=== PATIENT | female | born 1980 | race Caucasian/White ===

== ENCOUNTER 2017-02-18 03:15 | Inpatient (IN) | payer OTHER ==
[2017-02-13 15:16] VITALS: BMI 42.0
--- NOTE | 2017-02-13 15:37 | PAT Medication Instructions ---
Service Date Feb 13, 2017. Current Home Medication List Multiple Vitamin (Multi Vitamin Daily), 1 TAB PO QAM Medication Instructions For Your Scheduled Surgery - Hold the following medications the morning of surgery: Multiple Vitamin (Multi Vitamin Daily), 1 TAB PO QAM Nothing to eat or drink after midnight If you have any questions please call us at [phone] or [phone] or [phone]
[2017-02-13 15:56] LABS: BASO % 0.1 %; BASO ABS # 0.01 K/uL (0-0.2); COMPLETE YES; EOS % 0.4 %; HEMATOCRIT 33.1 % (37-47); IG% 0.4 %; LYMPH % 28.3 %; LYMPH ABS # 2.31 K/uL (1.2-3.4); MEAN CELL VOLUME 88.5 fL (80-100); MEAN CORPUSCULAR HEMOGLOBIN 29.7 pg (25-34); MEAN CORPUSCULAR HGB CONC 33.5 g/dl (32-36); MEAN PLATELET VOLUME 11.5 fL (7.4-10.4); MONO % 5.6 %; NEUT % 65.2 %; PLATELET COUNT 180 K/uL (130-400); RED BLOOD COUNT 3.74 M/uL (4.2-5.4); WHITE BLOOD COUNT 8.17 K/uL (4.8-10.8)
[2017-02-18] VITALS (15 sets, daily range): BP systolic 99–117; BP diastolic 59–72; PULSE 61–73; TEMP 36.4–36.8; O2SAT 98–100; Ht 165.1 cm; Wt 115.0 kg
[~2017-02-18] VITALS: Ht 165.1 cm; Wt 115.0 kg
[~2017-02-18 03:15] MED LIST: MULT-884 PO
[2017-02-18] MEDS ORDERED: CITRIC ACID/SODIUM CITRATE 15 ML UDC PO STA (06:36)
[2017-02-18] MEDS ORDERED: CEFAZOLIN IV 3,000 MG in DEXTROSE 5% 50ML IV STA (06:37)
[2017-02-18 06:44] LABS: BASO % 0.3 %; BASO ABS # 0.02 K/uL (0-0.2); COMPLETE YES; EOS % 1.3 %; IG% 0.3 %; MEAN CELL VOLUME 88.2 fL (80-100); MEAN CORPUSCULAR HEMOGLOBIN 29.7 pg (25-34); MEAN CORPUSCULAR HGB CONC 33.6 g/dl (32-36); MEAN PLATELET VOLUME 11.5 fL (7.4-10.4); MONO % 7.7 %; NEUT % 63.4 %; PLATELET COUNT 168 K/uL (130-400); RED BLOOD COUNT 3.74 M/uL (4.2-5.4); WHITE BLOOD COUNT 7.04 K/uL (4.8-10.8)
--- NOTE | 2017-02-18 06:53 | History & Physical Bridge Note ---
H&P Re-Evaluation Bridge Note: I have examined the patient, reviewed the History & Physical and in the interval since the performance of the History & Physical I have noted the following changes of clinical significance: No changes noted
[2017-02-18] MEDS: LACTATED RINGER'S 1000ML 1,000 ML IV SCH ×2 (06:59→07:25)
[2017-02-18] MEDS ORDERED: MoRPHine SULFATE PF 1 MG/ML 10 ML AMP/VIAL ONE (07:07)
[2017-02-18] MEDS ORDERED: DC INTRASPINAL MORPHINE SCH (07:35)
[2017-02-18] MEDS ORDERED: PROPOFOL IV EMULSION 10 MG/ML 20 ML VIAL IV ONE (07:55)
[2017-02-18] MEDS ORDERED: ONDANSETRON INJ 2 MG/ML 2 ML VIAL ONE (07:55)
[2017-02-18] MEDS ORDERED: METOCLOPRAMIDE HCL INJ 5 MG/ML 2 ML VIAL ONE (07:55)
[2017-02-18] MEDS ORDERED: OXYTOCIN INJ 10 UNITS/ML VIAL ONE ×3 (07:55→08:16)
[2017-02-18] MEDS ORDERED: EpHEDrine SULFATE 50MG/5ML SYR ONE (07:56)
[2017-02-18] MEDS ORDERED: PHENYLEPHRINE 100MCG/ML 5ML SYR ONE (07:56)
[2017-02-18] MEDS ORDERED: LACTATED RINGER'S 1000ML 1,000 ML IV SCH (08:31)
--- NOTE | 2017-02-18 08:37 | [facility] Post Operative Brief Note ---
Immediate Operative Summary Operative Date Feb 18, 2017. Pre-Operative Diagnosis Term intrauterine at 40 weeks, 2 days. Desires elective repeat section. Post-Operative Diagnosis Same with delivery of viable male at 0759. Procedure(s) Performed Repeat low transverse section. Surgeon Dr. Saunders Geodetic Surveyor Technologist Surgeon(s) Dr. Shah Estimated Blood Loss 700 Findings Patient delivered a viable male in the vertex position at 0759 on via repeat LTCS. APGARs were 8 at 1 minute and 9 at minutes. Please see pediatricians notes for further baby assessment. Cord blood obtained and an intact placenta was delivered manually and sent to pathology. Grossly normal uterus and bilateral tubes and ovaries noted. Patient tolerated the surgery well and was sent to recovery with stable vital signs. Fluids (cc crystalloids) 3200 Specimens A. Placenta - exam B. Cord blood Drains Bowen to gravity Anesthesia Spinal Complication(s) None Disposition L&D
[2017-02-18] MEDS ORDERED: SODIUM CHLORIDE 0.9% 1000ML 1,000 ML IV PRN (08:41)
[2017-02-18] MEDS ORDERED: NALOXONE HCL INJ 1 MG in SODIUM CHLORIDE 0.9% 1000ML 1,000 ML IV PRN ×4 (08:41)
[2017-02-18] MEDS ORDERED: LACTATED RINGER'S 1000ML 500 ML IV PRN (08:41)
[2017-02-18] MEDS ORDERED: NALOXONE HCL INJ 0.08 MG in SYRINGE 1.8 ML IV PRN (08:41)
[2017-02-18] MEDS ORDERED: SUPERCREAM 0.870 % 15GM JAR EXT PRN (08:45)
[2017-02-18] MEDS ORDERED: MoRPHine SULFATE PF 1 MG/ML 10 ML AMP/VIAL EPI PRN (08:45)
[2017-02-18] MEDS ORDERED: BENZOCAINE 20% AER SPR 82.5 GM CAN EXT PRN (08:45)
[2017-02-18] MEDS ORDERED: PROMETHAZINE HCL INJ 12.5 MG in SODIUM CHLORIDE 0.9% 50ML 50 ML IV PRN (08:45)
[2017-02-18] MEDS ORDERED: MAGNESIUM HYDROXIDE SUSP 30 ML UDC PO PRN (08:45)
[2017-02-18] MEDS ORDERED: LANOLIN OINT EXT PRN ×2 (08:45)
[2017-02-18] MEDS ORDERED: PHENYLEPHRINE 100MCG/ML 5ML SYR IV PRN (08:45)
[2017-02-18] MEDS ORDERED: PROMETHAZINE HCL INJ 25 MG in SODIUM CHLORIDE 0.9% 50ML 50 ML IV PRN (08:45)
[2017-02-18] MEDS ORDERED: MEPERIDINE HCL 25 MG/ML CARP IV PRN ×2 (08:45)
[2017-02-18] MEDS ORDERED: DiphenhydrAMINE HCL 50 MG/ML VIAL IV PRN (08:45)
[2017-02-18] MEDS ORDERED: DIPHTHERIA/TETANUS/PERTUSSIS 0.5 ML SYR/VIAL IM. ONE (08:45)
[2017-02-18] MEDS ORDERED: KETOROLAC TROMETHAMINE 30 MG/ML VIAL IV. PRN (08:45)
[2017-02-18] MEDS ORDERED: ONDANSETRON INJ 2 MG/ML 2 ML VIAL IV PRN ×2 (08:45)
[2017-02-18] MEDS ORDERED: NALBUPHINE HCL INJ 10 MG/ML AMP IV PRN (08:45)
[2017-02-18] MEDS ORDERED: SENNA 8.6 MG TAB PO PRN (08:45)
[2017-02-18] MEDS ORDERED: EpHEDrine SULFATE INJ 50 MG/ML AMP IV PRN ×2 (08:45)
[2017-02-18] MEDS ORDERED: NALOXONE HCL 0.4 MG/1 ML VIAL/CARP IV PRN (08:45)
[2017-02-18] MEDS ORDERED: ATROPINE SULFATE 0.1 MG/ML 5ML SYR IV PRN (08:45)
[2017-02-18] MEDS ORDERED: NO NARCOTICS OR SEDATIVES SCH (08:45)
[2017-02-18] MEDS ORDERED: HYDROCORTISONE ACETATE 25 MG SUPP PR PRN (08:45)
[2017-02-18] MEDS: OXYTOCIN INJ 30 UNITS in LACTATED RINGER'S 1000ML 1,000 ML IV SCH ×2 (08:59→16:50)
[2017-02-18] MEDS: SIMETHICONE 80 MG CHEW PO SCH ×4 (09:00→19:54)
--- NOTE | 2017-02-18 09:24 | OPERATIVE REPORT ---
DATE OF OPERATION: 02/18/2017 PREOPERATIVE DIAGNOSES: 1. Term intrauterine at 40 weeks and 2 days gestation. 2. History of previous section, requesting a repeat section. POSTOPERATIVE DIAGNOSES: Same. OPERATIVE PROCEDURE: Repeat low transverse section. SURGEON: Dr. Saunders. CHECKOUT OPERATOR: Dr. Shah. ANESTHESIA: Spinal. ESTIMATED BLOOD LOSS: 700 mL. IV FLUIDS: 3200 mL crystalloids. URINE OUTPUT: 300 mL clear yellow urine. SPECIMENS: Placenta to pathology and cord blood. DRAINS: Bowen to gravity. COMPLICATIONS: None. DISPOSITION: Labor delivery. OPERATIVE FINDINGS: The patient delivered a viable male in the vertex position at 7:59 a.m. on 02/18/2017 via repeat low transverse section. Apgars were 8 at 1 minute and 9 at 5 minutes, weight is pending. Please see concession cashier's notes for further baby assessment. Cord blood was then obtained and intact placenta was delivered manually and sent to pathology at 8:01 a.m. Grossly normal uterus and bilateral tubes and ovaries were noted. The patient tolerated the surgery well and was sent to recovery with stable vital signs. OPERATIVE PROCEDURE IN DETAIL: The patient was taken to the operating room where spinal anesthesia was administered. The patient was then immediately placed in dorsal supine position with a left lateral tilt and was prepped and draped in a manner appropriate for the procedure. Once anesthesia was found to be adequate, a Pfannenstiel skin incision was made over the previous scar and was carried down through to a layer of the rectus fascia. The fascia was nicked in the midline and extended bilaterally with curved Hill scissors. The superior aspect of the fascial incision was grasped with Penelope clamps, elevated, and the rectus muscles were dissected off with the use of the curved Hill scissors and electrocautery. Likewise, the inferior aspect of the fascial incision was grasped with Penelope clamps, elevated, and the rectus muscles were dissected off with the use of the curved Hill scissors and electrocautery. The rectus muscles were then in midline. The peritoneum was then grasped with hemostats x2 and entered with Metzenbaum scissors. The peritoneal incision was then extended cephalocaudally with gentle traction. The bladder blade was then placed within the abdomen. The vesicouterine peritoneum was identified and a bladder flap was created with Metzenbaum scissors and digital traction. The bladder flap was reincorporated beneath the Paramjit blade. A transverse incision was then made on the uterus and extended bilaterally with digital traction. The membranes were then ruptured noting clear amniotic fluid. The head was then identified and delivered through the incision along with the rest of the body. Baby was bulb suctioned at delivery. Cord was clamped x2 and cut. The baby was then immediately handed to an awaiting concession cashier for further evaluation and management. Please see their notes for further baby assessment. Cord blood was then obtained and intact placenta with a 3-vessel cord was delivered manually through the incision and sent to pathology. The uterus was then exteriorized and wrapped in a moist laparotomy sponge. The uterus was then cleared of any trailing membranes and debris with laparotomy sponge. The uterine incision was then grasped with ringed forceps at 4 quadrants and was closed with 0 Vicryl suture in continuous locking fashion. A second 0 Vicryl suture was used in imbricating fashion to ensure hemostasis. Any residual bleeding was suture-ligated with 0 Vicryl suture in a [id number] interrupted fashion. Excellent hemostasis was noted at the uterine incision. The bladder flap was reapproximated to the lower uterine segment with 3-0 Vicryl suture in continuous running fashion. The posterior cul-de-sac was then irrigated with warm saline solution. The uterus was then placed back within its normal anatomic position within the abdomen. The anterior cul-de-sac was then irrigated with warm saline solution. The uterine incision was noted to be hemostatic. All instruments were then removed from the abdomen. The rectus fascia was then reapproximated with 0 Vicryl suture in continuous running fashion. Subcutaneous tissue was reapproximated with 2-0 Vicryl suture in continuous running fashion. Skin was then closed with iam. Excellent hemostasis was noted through all tissue layers. Both patient and baby tolerated the surgery well and was sent to recovery with stable vital signs. I attest to the content of the Intraoperative Record and any orders documented therein. Any exception s are noted below.
--- NOTE | 2017-02-18 11:52 | Anesthesiology Progress Note ---
Anesthesia Post Op Note Date & Time Feb 18, 2017 at 11:52 Vital Signs Vital Signs Past 12 Hours Date Time Temp Pulse Resp B/P (MAP) Pulse Ox O2 Delivery O2 Flow Rate FiO2 02/18/17 10:45 16 100 02/18/17 10:45 100 Room Air 02/18/17 10:45 36.4 72 16 105/59 (74) 100 Room Air Notes Mental Status: alert / awake / arousable, participated in evaluation Pt Amnestic to Procedure: Yes Nausea / Vomiting: adequately controlled Pain: adequately controlled Airway Patency, RR, SpO2: stable & adequate BP & HR: stable & adequate Hydration State: stable & adequate Neuraxial Anesthesia: was administered, sensory block is resolving Anesthetic Complications: no major complications apparent
[2017-02-18] MEDS: KETOROLAC TROMETHAMINE 30 MG/ML VIAL IV. PRN ×2 (17:00→23:53)
[2017-02-18] MEDS: DOCUSATE SODIUM 100 MG CAP PO SCH (20:00)
[2017-02-19] MEDS ORDERED: KETOROLAC TROMETHAMINE 30 MG/ML VIAL IV. PRN
[2017-02-19] MEDS ORDERED: DiphenhydrAMINE HCL 50 MG/ML VIAL IV PRN
[2017-02-19] MEDS ORDERED: ONDANSETRON INJ 2 MG/ML 2 ML VIAL IV PRN
[2017-02-19] MEDS ORDERED: OXYCODONE/ACETAMINOPHEN 5-325 TAB PO PRN
[2017-02-19 04:10] VITALS: BP 98/65; PULSE 71; TEMP 36.6; O2SAT 98
[2017-02-19] MEDS: IBUPROFEN 600 MG TAB PO PRN ×5 (04:18→22:43)
[2017-02-19] MEDS: OXYCODONE/ACETAMINOPHEN 5-325 TAB PO PRN ×5 (04:19→22:43)
[2017-02-19 07:06] LABS: BASO % 0.3 %; BASO ABS # 0.02 K/uL (0-0.2); COMPLETE YES; EOS % 1.1 %; HEMATOCRIT 32.9 % (37-47); IG% 0.3 %; LYMPH % 20.4 %; LYMPH ABS # 1.63 K/uL (1.2-3.4); MEAN CELL VOLUME 88.7 fL (80-100); MEAN CORPUSCULAR HEMOGLOBIN 29.1 pg (25-34); MEAN CORPUSCULAR HGB CONC 32.8 g/dl (32-36); MEAN PLATELET VOLUME 11.2 fL (7.4-10.4); MONO % 7.6 %; NEUT % 70.3 %; PLATELET COUNT 167 K/uL (130-400); RED BLOOD COUNT 3.71 M/uL (4.2-5.4)
[2017-02-19 09:25] VITALS: BP 102/66; PULSE 60; TEMP 36.7; O2SAT 98
[2017-02-19] MEDS: PRENATAL VITAMIN TAB PO SCH (09:26)
[2017-02-19] MEDS: FERROUS SULFATE 325 MG TAB PO SCH (09:26)
[2017-02-19] MEDS: SIMETHICONE 80 MG CHEW PO SCH ×4 (09:27→20:00)
[2017-02-19] MEDS: DOCUSATE SODIUM 100 MG CAP PO SCH ×2 (09:28→19:54)
--- NOTE | 2017-02-19 11:43 | Surgery Progress Note ---
Surgery Progress Note Date of Service Feb 19, 2017. Subjective Post OP Day: 1 + feeling well, + ambulating, + flatus, + pain controlled, + diet (Tolerating PO ), No complaints, No chest pain, No SOB, No bowel movement, No using C[employer] P[employer]LED MEAT, No nausea, No vomiting Objective Vital Signs: Date Time Temp Pulse Resp B/P (MAP) Pulse Ox O2 Delivery O2 Flow Rate FiO2 02/19/17 09:25 36.7 60 18 102/66 (78) 98 Room Air 02/19/17 09:25 98 Room Air 02/19/17 04:10 36.6 71 16 98/65 (76) 98 Room Air 02/18/17 23:45 16 98 02/18/17 23:45 Room Air 02/18/17 23:45 36.8 71 16 99/66 (77) 98 02/18/17 23:00 18 98 02/18/17 22:00 18 98 02/18/17 21:00 16 98 02/18/17 20:00 18 98 02/18/17 19:30 36.7 61 18 105/69 (81) 98 Room Air 02/18/17 19:00 18 98 02/18/17 18:00 18 100 02/18/17 17:00 16 98 02/18/17 16:00 18 100 02/18/17 15:20 36.6 64 16 117/72 (87) 100 Room Air 02/18/17 15:20 100 Room Air 02/18/17 14:47 18 98 02/18/17 12:45 36.4 73 16 109/65 (80) 100 Room Air 02/18/17 12:45 16 100 02/18/17 12:45 36.4 73 16 109/65 (80) 100 Room Air 02/18/17 11:45 36.6 70 16 113/71 (85) 100 Room Air 02/18/17 11:45 16 100 General Appearance: WD/WN, no apparent distress Head: normocephalic, atraumatic Neck: supple, no adenopathy, thyroid normal, no JVD, no carotid bruits, trachea midline Respiratory/Chest: chest non-tender, lungs clear, normal breath sounds, no respiratory distress, no accessory muscle use Cardiovascular: regular rate, rhythm, no edema, no gallop, no JVD, no murmur Abdomen: normal bowel sounds, non tender, non distended, soft, no organomegaly , no pulsatile mass Incision(s): clean, dry, intact, no erythema, no drainage Extremities: normal range of motion, non-tender, normal inspection, no pedal edema, no calf tenderness, normal capillary refill, pelvis stable Laboratory Results: Results Past 24 Hours Test 02/19/17 06:50 Range/Units White Blood Count 8.00 4.8-10.8 K/uL Red Blood Count 3.71 4.2-5.4 M/uL Hemoglobin 10.8 12.0-16.0 g/dL Hematocrit 32.9 37-47 % Mean Corpuscular Volume 88.7 80-100 fL Mean Corpuscular Hemoglobin 29.1 25-34 pg Mean Corpuscular Hemoglobin Concent 32.8 32-36 g/dl Platelet Count 167 130-400 K/uL Mean Platelet Volume 11.2 7.4-10.4 fL Neutrophils (%) (Auto) 70.3 % Lymphocytes (%) (Auto) 20.4 % Monocytes (%) (Auto) 7.6 % Eosinophils (%) (Auto) 1.1 % Basophils (%) (Auto) 0.3 % Neutrophils # (Auto) 5.63 1.4-6.5 K/uL Lymphocytes # (Auto) 1.63 1.2-3.4 K/uL Monocytes # (Auto) 0.61 0.11-0.59 K/uL Eosinophils # (Auto) 0.09 0-0.5 K/uL Basophils # (Auto) 0.02 0-0.2 K/uL RDW Standard Deviation 42.0 36.4-46.3 fL RDW Coefficient of Variation 13.1 11.5-14.5 % Immature Granulocyte % (Auto) 0.3 % Immature Granulocyte # (Auto) 0.02 0.00-0.02 K/uL Assessment & Plan C/sec day #1 Pt doing well Continue day 1 care
[2017-02-19 11:50] VITALS: BP 101/68; PULSE 65; TEMP 36.7; O2SAT 99
[2017-02-19 16:00] VITALS: BP 116/69; PULSE 62; TEMP 36.5; O2SAT 99
[2017-02-19] MEDS ORDERED: BISACODYL 5 MG TABEC PO ONE (22:00)
[2017-02-19 23:10] VITALS: BP 114/76; PULSE 67; TEMP 36.7
[2017-02-20] MEDS: IBUPROFEN 600 MG TAB PO PRN ×5 (04:40→20:19)
[2017-02-20] MEDS: OXYCODONE/ACETAMINOPHEN 5-325 TAB PO PRN ×5 (04:42→20:19)
[2017-02-20 06:53] LABS: HEMATOCRIT 33.3 % (37-47)
--- NOTE | 2017-02-20 07:59 | Surgery Progress Note ---
Surgery Progress Note Date of Service Feb 20, 2017. Subjective Post OP Day: 1 + feeling well, + ambulating, + flatus, + pain controlled, + diet Objective Vital Signs: Date Time Temp Pulse Resp B/P (MAP) Pulse Ox O2 Delivery O2 Flow Rate FiO2 02/19/17 23:10 36.7 67 18 114/76 (89) Room Air 02/19/17 23:10 Room Air 02/19/17 16:00 Room Air 02/19/17 16:00 36.5 62 16 116/69 (85) 99 Room Air 02/19/17 11:50 36.7 65 18 101/68 (79) 99 Room Air 02/19/17 09:25 36.7 60 18 102/66 (78) 98 Room Air 02/19/17 09:25 98 Room Air General Appearance: no apparent distress Abdomen: non tender, non distended, soft Incision(s): clean, dry, intact Extremities: non-tender, normal inspection, no pedal edema, no calf tenderness Laboratory Results: Results Past 24 Hours Test 02/20/17 06:40 Range/Units Hemoglobin 11.0 12.0-16.0 g/dL Hematocrit 33.3 37-47 % Assessment & Plan POD#2 tent d/c in AM regular diet
[2017-02-20] MEDS: SIMETHICONE 80 MG CHEW PO SCH ×4 (08:32→20:18)
[2017-02-20] MEDS: PRENATAL VITAMIN TAB PO SCH (08:33)
[2017-02-20] MEDS: FERROUS SULFATE 325 MG TAB PO SCH (08:33)
[2017-02-20] MEDS: DOCUSATE SODIUM 100 MG CAP PO SCH ×2 (08:33→20:18)
[2017-02-20] MEDS ORDERED: BISACODYL 10 MG SUPP PR PRN (08:45)
[2017-02-20 15:45] VITALS: BP 100/69; PULSE 61; TEMP 36.6; O2SAT 99
[2017-02-20 23:55] VITALS: BP 119/81; PULSE 69; TEMP 36.7
[2017-02-21] MEDS: IBUPROFEN 600 MG TAB PO PRN ×3 (01:35→11:56)
[2017-02-21] MEDS: OXYCODONE/ACETAMINOPHEN 5-325 TAB PO PRN ×3 (01:35→11:56)
[2017-02-21] MEDS: SIMETHICONE 80 MG CHEW PO SCH (07:48)
[2017-02-21] MEDS: DOCUSATE SODIUM 100 MG CAP PO SCH (07:48)
[2017-02-21] MEDS: PRENATAL VITAMIN TAB PO SCH (07:48)
[2017-02-21] MEDS: FERROUS SULFATE 325 MG TAB PO SCH (07:48)
[2017-02-21 08:00] VITALS: BP 100/64; PULSE 58; TEMP 36.6
[2017-02-21] MEDS ORDERED: OXYC-57 PO (08:48)
[2017-02-21] MEDS ORDERED: MTR600X PO (08:48)
--- NOTE | 2017-02-21 08:49 | Discharge Instructions ---
Discharge Instructions Date of Service Feb 21, 2017. Admission Reason for Admission: Prior Section -Requesting Repeat Discharge Discharge Diagnosis / Problem: Repeat Csection Discharge Goals Goal(s): Routine recovery after Activity Recommendations Activity Limitations: as noted below ACTIVITY RECOMMENDATIONS: * Gradual return to full activity over the next 2-3 weeks. * No lifting - nothing heavier than baby over the next 2-3 weeks. * Do not engage in vigorous exercise, sexual activity or sports until cleared by your physician. * Do not drive or operate any motorized equipment until cleared by your physician. * You may shower/bathe daily. BREAST CARE: If you are not breast feeding: * Wear a supportive bra 24 hours a day for one to two weeks. * Avoid stimulating your breasts and nipples as much as possible during the first few weeks after delivery. * When taking a shower, have the warm water hit your back, not breasts. * When your breasts feel full, apply ice packs. Usually three to four times a day helps ease the discomfort. * Take a mild pain medication (Tylenol/Motrin) when you are uncomfortable. If breast feeding: * Use breast milk to lubricate nipples. Lansinoh cream may be used for sore nipples. You do not need to remove cream prior to breast feeding. If using a different brand of cream, check the label for directions regarding removal of cream prior to nursing. * Wear a supportive bra. * If having problems with breasts or breast feeding, call a [employer] consultant or your health care provider. OVER THE COUNTER MEDICATION: * For discomfort or pain, you may use Acetaminophen (Tylenol), Ibuprofen (Advil ), or Naproxen (Aleve) following the package directions. * For constipation you may use Colace following the package directions. SPECIAL CARE INSTRUCTIONS: When you are discharged from the hospital, it is important for you to follow the instructions listed below: * During the first week at home, you should be able to care for yourself and your baby. In addition, the usual light household activities are encouraged. * Limit your activities to the way you feel. Do not try to clean the house or move furniture. Be sensible. * If you actively engage in sports and have done so up until the time of your delivery, you may resume these activities as soon as you feel able. This may take up to one month or even longer. Use good judgment. * Continue to take your vitamins for at least six weeks after the of your baby. * Your diet need not be limited unless you were on a special diet before your delivery. Breast-feeding mothers need around 2500 calories per day and at least 64-80 ounces of fluid per day (8 to 10 glasses). * You should eat foods from the four major food groups. Crash diets or fad diets are to be avoided. Eating lean meats, fresh fruits and vegetables, low-fat dairy products, high fiber foods and a regular exercise program, will help you get back to your pre- weight without putting your health at risk. * Constipation is sometimes a problem after delivery. Take a mild laxative as needed. If breast feeding, Milk of Magnesia is acceptable to use. You may use a suppository or Fleets enema if no episiotomy. * A daily shower or tub bath is suggested. Be sure to thoroughly and gently dry the perineum. * A bloody vaginal discharge will usually continue until around four weeks post . A small amount of bleeding may continue for as long as six weeks. Vaginal discharge changes from the bright red bleeding after delivery to pink then brownish and finally yellowish-pink before becoming white and disappearing. * Bleeding may increase with activity. Your first period may come in 4-8 weeks. If you are breast feeding, your period may be delayed even longer. * [place] (sex) can begin whenever both you and your partner feel comfortable and do not have any form of genital infection. It is recommended that you wait at least six weeks for internal and external healing to occur. If you have questions, please talk to your health care practitioner. A condom should be used to prevent infection and . * Foreplay, gentle intercourse and lubrication is very important the first several times to prevent pain. A water-based lubricant such as K-Y jelly or Astroglide may be used. * Tampons and/or Douching should be avoided until after six weeks check-up. * If you have RH negative blood and your baby is RH positive, you will receive RHOGAM by injection prior to discharge. The nurse will give you a card to keep with you that has the date and place that you received RHOGAM after delivery. * During your care, you had a Rubella screen done to check for the presence of rubella antibodies in your blood. If your test was negative, you will receive a Rubella vaccine prior to discharge. This vaccine may cause a fever, soreness at the injection site and flu-like symptoms. If these symptoms persist, notify your health care practitioner. is not advised for three months after a Rubella vaccine. * Verbalizes understanding of car seat law as reviewed with patient nursing. * Car Seat hand-out given and reviewed with patient by nursing. * Shaken baby information reviewed with patient by nursing. Call you doctor if: * Heavy bleeding (saturating several pads an hour) or passing clots the size of your fist. * A fever >101 degrees F (38.3 degrees C) on two occasions four hours apart and /or chills. * Unusual pain in the pelvic or vaginal areas. Pain should improve each day . * Call the doctor for any increased redness, drainage or swelling around the incision and any pain unrelieved by prescribed pain medication. * Any signs or symptoms of phlebitis (possible blood clots forming in the veins ): leg pain, warm, red or swollen area on leg. * "Baby Blues" lasting longer than two weeks. If you have any questions or concerns, call your health care practitioner at . FOLLOW-UP VISIT: * Incision check (staple removal) in 1 week. Please call doctor's office at to set up appointment. * Please call the office at to schedule a 6 week examination. It is important you keep this appointment. * It is important for you to make arrangements for either yearly or twice yearly check-ups thereafter. . Current Hospital Diet Patient's current hospital diet: Low Lactose Diet, Regular OB Diet Discharge Diet Recommended Diet: Regular Diet Procedures Procedures Performed: Repeat low transverse section. Pending Studies Studies pending at discharge: no Medical Emergencies . Who to Call and When: Medical Emergencies: If at any time you feel your situation is an emergency, please call 606 immediately. . Non-Emergent Contact Non-Emergency issues call your: Surgeon Call Non-Emergent contact if: temperature is above 100.5, your pain is not controlled, your pain is worsening, wound has increased drainage, wound has increased redness . . "Provider Documentation" section prepared by Canan Sahin-Kandemir. . VTE Core Measure Inpt VTE Proph given/why not?: Treatment not indicated
--- NOTE | 2017-02-21 09:23 | OB/GYN Progress Note ---
[employer]TAIN [employer] Progress Note Date of Service: Feb 21, 2017. Patient is seen and examined. She feels well, no complaints. Pain is under control with oral meds. Ambulating without dizziness Voiding without difficulty Tolerating regular diet with out N&V Flatus + BM neg Bleeding is minimal No fever/ chills/ CP/ SOB/ N&V/ Leg pain Breast feeding without problems Date Time Temp Pulse Resp B/P (MAP) Pulse Ox O2 Delivery O2 Flow Rate FiO2 02/21/17 08:00 36.6 58 18 100/64 (76) Room Air 02/20/17 23:55 36.7 69 18 119/81 (94) Room Air 02/20/17 23:55 Room Air 02/20/17 15:45 Room Air 02/20/17 15:45 36.6 61 16 100/69 (79) 99 Room Air Test 02/13/17 15:44 02/18/17 06:29 02/19/17 06:50 02/20/17 06:40 White Blood Count 8.17 7.04 8.00 Red Blood Count 3.74 L 3.74 L 3.71 L Hemoglobin 11.1 L 11.1 L 10.8 L 11.0 L Hematocrit 33.1 L 33.0 L 32.9 L 33.3 L Mean Corpuscular Volume 88.5 88.2 88.7 Mean Corpuscular Hemoglobin 29.7 29.7 29.1 Mean Corpuscular Hemoglobin Concent 33.5 33.6 32.8 Platelet Count 180 168 167 Mean Platelet Volume 11.5 H 11.5 H 11.2 H Neutrophils (%) (Auto) 65.2 63.4 70.3 Lymphocytes (%) (Auto) 28.3 27.0 20.4 Monocytes (%) (Auto) 5.6 7.7 7.6 Eosinophils (%) (Auto) 0.4 1.3 1.1 Basophils (%) (Auto) 0.1 0.3 0.3 Neutrophils # (Auto) 5.33 4.47 5.63 Lymphocytes # (Auto) 2.31 1.90 1.63 Monocytes # (Auto) 0.46 0.54 0.61 H Eosinophils # (Auto) 0.03 0.09 0.09 Basophils # (Auto) 0.01 0.02 0.02 RDW Standard Deviation 41.4 41.5 42.0 RDW Coefficient of Variation 12.9 12.9 13.1 Immature Granulocyte % (Auto) 0.4 0.3 0.3 Immature Granulocyte # (Auto) 0.03 H 0.02 0.02 PE: General: Alert, orientedx3, NAD CVS: S1S2 RRR Lungs; CTAB Abd: soft, NT, fundus firm, below Umbilicus Incision: Clean, dry, intact Perineum intact, Lochia rubra minimal Ext; NT, no edema AP: 36 yo s/p C Section, pod# 3 VSS Afebrile doing well Continue routine postop care Encourage ambulation, PO intake MOM now All questions were answered Discussed when to call D/C home , f/u in office
[2017-02-21] MEDS ORDERED: CLC100 PO (09:24)
[2017-02-21] MEDS ORDERED: MAGNESIUM HYDROXIDE SUSP 30 ML UDC PO ONE (09:45)
[2017-02-21 11:55] VITALS: BP_DIAS 64; PULSE 58; TEMP 36.6
== END 2017-02-21 12:15 | disposition home or self-care (01) | DRG 766 ==
LOC: C.LD 05:54 → EDSTATUS 07:17 → C.OBG 11:11
PROVIDERS: ADMIT Obstetrics & Gynecology; ATTEND Obstetrics & Gynecology
PROC: 10D00Z1 Extraction of Products of Conception, Low, Open Approach (ICD-10-PCS; principal; 2017-02-18 07:30)
DX: O34.211 Maternal care for low transverse scar from previous cesarean delivery (principal); Z3A.40 40 weeks gestation of pregnancy; Z37.0 Single live birth

== ENCOUNTER 2017-06-20 16:30 | Emergency (ER) | payer SELFPAY ==
[~2017-06-20] VITALS: Ht 165.1 cm; Wt 108.8 kg
[~2017-06-20 16:30] MED LIST changes: +CLC100 PO; +MTR600X PO; +OXYC-57 PO
[2017-06-20 16:33] VITALS: TEMP 36.7; Ht 165.1 cm; Wt 108.8 kg
[2017-06-20] MEDS ORDERED: PEDICHW50 PO (17:07)
--- NOTE | 2017-06-20 17:16 | EMERGENCY ROOM VISIT NOTE ---
History Report prepared by Yojanaibjames: Theo Womack Under the Supervision of: Dr. Ernesto Rubi D.O. 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 She woke up with the chest pain this morning, which comes and goes every hour and has not subsided. She currently rates her pain a 5/10 in severity. She describes the chest pain as achy. She notes general lightheadedness, abdominal pain, and diarrhea. She notes the episodes of diarrhea every 10 minutes, though it has since subsided. She notes the abdominal pain has since resolved itself. She notes the abdominal pain is unrelated to the chest pain. She notes painful abscesses under her right breast. She denies any previous history of abscesses. She notes a section February 18, 2107 without complications. Pt denies headache, change in vision, fevers, shortness of breath, nausea, vomiting, pain with urination, and melena. Patient denies diabetes, hypertension, hyperlipidemia, CAD, history of sudden at a young age, and smoking. Patient denies swelling of calves, recent trips, history of immobilization or recent surgery, prior history of DVT, hemoptysis, history of malignancy, history of smoking, or control/estrogen use. 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 She notes painful abscesses under her right breast. She denies any changes in vision. Review of Systems See HPI for pertinent positives & negatives. A total of 10 systems reviewed and were otherwise negative. Past Medical & Surgical Medical Problems: (1) Bronchitis (2) Eczema (3) Family History FH: diabetes mellitus FH: hypertension FHx: alcoholism FHx: liver disease Hypertension Social History Smoking Status: Former Smoker Alcohol Use: none Drug Use: none Marital Status: Housing Status: lives with family Occupation Status: unemployed Current/Historical Medications Scheduled Pediatric Multiple Vitamin W/ (Flintstones Chewable), 1 TAB PO QAM Allergies Coded Allergies: Polyethylene Glycol (Verified Allergy, Intermediate, HIVES, 02/13/17) Lactose Intolerance (GI) (Verified Allergy, Mild, GI SYMPTOMS, 02/13/17) milk only Physical Exam Vital Signs Date Time Temp Pulse Resp B/P (MAP) Pulse Ox O2 Delivery O2 Flow Rate FiO2 06/20/17 20:42 72 16 113/72 98 06/20/17 19:37 61 18 119/75 99 Room Air 06/20/17 18:20 56 16 87/62 98 Room Air 06/20/17 16:33 36.7 80 17 132/93 99 Room Air Physical Exam GENERAL: Sitting up in bed, alert, well appearing, well nourished, no distress, non-toxic. Face covered in mask. EYE EXAM: normal conjunctiva. OROPHARYNX: no exudate, no erythema, lips, buccal mucosa, and tongue normal and mucous membranes are moist BREAST: Performed with female scribe bedside, one small erythematous slightly raised lesion under right breast which was slightly indurated NECK: supple, no nuchal rigidity, no adenopathy, non-tender. No JVD. LUNGS: Clear to auscultation. Normal chest wall mechanics HEART: no murmurs, S1 normal and S2 normal ABDOMEN: abdomen soft, non-tender, normo-active bowel sounds, no masses, no rebound or guarding. BACK: Back is symmetrical on inspection and there is no deformity, no midline tenderness, no CVA tenderness. SKIN: no rashes and no bruising UPPER EXTREMITIES: upper extremities are grossly normal. Radial pulses are equal and bilateral. LOWER EXTREMITIES: No pitting edema. Calves are equal and bilateral. NEURO EXAM: Normal sensorium, cranial nerves II-XII grossly intact, normal speech, no gross weakness of arms, no gross weakness of legs. Medical Decision & Procedures ER Provider Diagnostic Interpretation: Radiology results as stated below per my review and the radiologist's interpretation: CHEST ONE VIEW PORTABLE CLINICAL HISTORY: cp dyspnea COMPARISON STUDY: 02/19/2016 FINDINGS: The bones soft tissues and hemidiaphragms are normal. The cardiomediastinal silhouette is normal. The lungs are clear. The pulmonary vasculature is normal. IMPRESSION: Negative chest. The above report was generated using voice recognition software. It may contain grammatical, syntax or spelling errors. Electronically signed by: Yassine Malagon M.D. 06/20/2017 5:26 PM Dictated Date/Time: 06/20/2017 5:26 PM (CHEST FOR PE) ANGIO WITH CT DOSE: 1835.94 mGy.cm HISTORY: Chest pain dyspnea TECHNIQUE: Multiaxial CT images of the chest were performed following the intravenous administration of contrast to evaluate the pulmonary arteries. Maximal intensity projection images were also obtained. A dose lowering technique was utilized adhering to the principles of ALARA. COMPARISON STUDY: None. FINDINGS: There is a normal caliber thoracic aorta with no evidence for dissection. There is no evidence for pulmonary embolus. No pleural effusions. No pneumothorax. The liver and spleen are unremarkable. No mediastinal or hilar lymphadenopathy. The central airways are patent. The lungs are clear. IMPRESSION: No evidence for pulmonary embolus. The lungs are clear The above report was generated using voice recognition software. It may contain grammatical, syntax or spelling errors. Electronically signed by: Yassine Malagon M.D. 06/20/2017 7:02 PM Dictated Date/Time: 06/20/2017 7:00 PM ABD/PELVIS IV CONTRAST ONLY CT DOSE: HISTORY: Pain. Nausea. abd pain TECHNIQUE: Multiaxial CT images of the abdomen and pelvis were performed following the use of intravenous contrast. A dose lowering technique was utilized adhering to the principles of ALARA. COMPARISON STUDY: None. FINDINGS: Lung bases are clear. The liver spleen pancreas are unremarkable. The kidneys enhance uniformly. Bowel pattern suggests several loops of bowel showing a slight degree of hyperemia. There are several reactive mesenteric nodes. There are no obstructive characteristics. There is a 2.5 cm right ovarian cyst. There is a 1.5 cm left ovarian cyst. Uterus is anteflexed. There is no free fluid within the pelvic cul-de-sac. IMPRESSION: 1. Mild enteritis. 2. Small bilateral ovarian cysts. The above report was generated using voice recognition software. It may contain grammatical, syntax or spelling errors. Electronically signed by: Yassine Malagon M.D. 06/20/2017 7:05 PM Dictated Date/Time: 06/20/2017 7:02 PM Laboratory Results 06/20/17 17:25 Red Blood Count 4.73, Mean Corpuscular Volume 90.5, Mean Corpuscular Hemoglobin 31.1, Mean Corpuscular Hemoglobin Concent 34.3, Mean Platelet Volume 10.9, Neutrophils (%) (Auto) 68.1, Lymphocytes (%) (Auto) 23.8, Monocytes (%) (Auto) 6.3, Eosinophils (%) (Auto) 1.5, Basophils (%) (Auto) 0.2, Neutrophils # (Auto) 6.21, Lymphocytes # (Auto) 2.17, Monocytes # (Auto) 0.57, Eosinophils # (Auto) 0.14, Basophils # (Auto) 0.02 06/20/17 17:25 Test 06/20/17 17:25 06/20/17 17:27 06/20/17 19:19 White Blood Count 9.12 K/uL (4.8-10.8) Red Blood Count 4.73 M/uL (4.2-5.4) Hemoglobin 14.7 g/dL (12.0-16.0) Hematocrit 42.8 % (37-47) Mean Corpuscular Volume 90.5 fL (80-100) Mean Corpuscular Hemoglobin 31.1 pg (25-34) Mean Corpuscular Hemoglobin Concent 34.3 g/dl (32-36) Platelet Count 255 K/uL (130-400) Mean Platelet Volume 10.9 fL (7.4-10.4) Neutrophils (%) (Auto) 68.1 % Lymphocytes (%) (Auto) 23.8 % Monocytes (%) (Auto) 6.3 % Eosinophils (%) (Auto) 1.5 % Basophils (%) (Auto) 0.2 % Neutrophils # (Auto) 6.21 K/uL (1.4-6.5) Lymphocytes # (Auto) 2.17 K/uL (1.2-3.4) Monocytes # (Auto) 0.57 K/uL (0.11-0.59) Eosinophils # (Auto) 0.14 K/uL (0-0.5) Basophils # (Auto) 0.02 K/uL (0-0.2) RDW Standard Deviation 42.5 fL (36.4-46.3) RDW Coefficient of Variation 12.9 % (11.5-14.5) Immature Granulocyte % (Auto) 0.1 % Immature Granulocyte # (Auto) 0.01 K/uL (0.00-0.02) D-Dimer 2220 ug/L FEU (0-500) Anion Gap 3.0 mmol/L (3-11) Est Creatinine Clear Calc Drug Dose 105.9 ml/min Estimated GFR () 94.7 Estimated GFR (Non- 81.7 BUN/Creatinine Ratio 14.9 (10-20) Calcium Level 9.4 mg/dl (8.5-10.1) Total Bilirubin 0.4 mg/dl (0.2-1) Direct Bilirubin 0.1 mg/dl (0-0.2) Aspartate Amino Transf (AST/SGOT) 21 U/L (15-37) Alanine Aminotransferase (ALT/SGPT) 38 U/L (12-78) Alkaline Phosphatase 60 U/L (45-117) Total Protein 8.5 gm/dl (6.4-8.2) Albumin 4.2 gm/dl (3.4-5.0) Lipase 158 U/L (73-393) Urine Color YELLOW Urine Appearance CLEAR (CLEAR) Urine pH 5.5 (4.5-7.5) Urine Specific [place] 1.022 (1.000-1.030) Urine Protein NEG (NEG) Urine Glucose (UA) NEG (NEG) Urine Ketones NEG (NEG) Urine Occult Blood NEG (NEG) Urine Nitrite NEG (NEG) Urine Bilirubin NEG (NEG) Urine Urobilinogen NEG (NEG) Urine Leukocyte Esterase SMALL (NEG) Urine WBC (Auto) 1-5 /hpf (0-5) Urine RBC (Auto) 0-4 /hpf (0-4) Urine Hyaline Casts (Auto) 0 /lpf (0-5) Urine Epithelial Cells (Auto) 20-30 /lpf (0-5) Urine Bacteria (Auto) NEG (NEG) Urine Test NEG (NEG) Troponin I < 0.015 ng/ml (0-0.045) Laboratory results per my review. Medications Administered Medications (Trade) Dose Ordered Sig/Dawn Route Start Time Stop Time Status Last Admin Dose Admin Sodium Chloride 2,000 ml @ 999 mls/hr Q2H1M STAT IV 06/20/17 18:28 06/20/17 20:28 DC 06/20/17 18:36 999 MLS/HR Ondansetron HCl (Zofran Inj) 4 mg NOW STAT IV 06/20/17 18:28 06/20/17 18:29 DC 06/20/17 18:36 4 MG Ketorolac Tromethamine (Toradol Inj) 30 mg NOW STAT IV 06/20/17 18:28 06/20/17 18:29 DC 06/20/17 18:37 30 MG ED Course ED COURSE: Vital signs were reviewed and showed normal. The patients medical record was reviewed The above diagnostic studies were performed and reviewed. ED treatments and interventions as stated above. 1652: The patient was evaluated in room A11B. A complete history and physical examination was performed. 1827: Ordered Toradol 30 mg IV, Zofran 4 mg IV, and Sodium Chloride 2,000 ml @ 999 mls/hr IV 1899: Ordered Ioversol 115 ml IV 2028: Upon reevaluation, the patient is feeling better and resting comfortably. I discussed my findings with the patient and she understands and agrees with the treatment plan. Based on the patients age, coexisting illnesses, exam and lab findings the decision to treat as an outpatient was made. The patient remained stable while under my care. The patient appeared well at the time of discharge. Medical Decision Differential diagnoses includes but is not limited to acute coronary syndrome, myocardial infarction, pericarditis, pulmonary embolus, aortic dissection, pneumonia, pneumothorax, musculoskeletal, shingles, esophageal. Patient is a 36-year-old female who presents to ER for chest pain which has been present off-and-on since 6 AM this morning. She does have some abdominal discomfort and diarrhea. Diarrhea has been fairly persistent all day. Patient has no cardiac risk factors or PE risk factors. D-dimer was obtained and was elevated. Based on this a CT PE was performed. The CT PE was negative. CT CT of abdomen and pelvis was performed as well and was unremarkable but did show enteritis. CBC all BMP, LFTs, bilirubin and troponin with 2 was negative. Lipase is normal. EKG was nondiagnostic. She did drop her pressure once which was in the 80s. When this was repeated is completely unremarkable. I do favor this is secondary to her diarrheal state. Patient was updated bedside. Based on the hard score she is a low risk. This is explained at length. Patient was discharged follow-up with PCP as an outpatient. Discussed with Pt concerning signs and symptoms to watch out for. Pt was instructed to follow up with their PCP and discussed with the patient their option to return to the ED at anytime for persistent or worsening symptoms. The appropriate anticipatory guidance and out-patient management, including indications for return to the emergency department, were explained at length to the patient and understood. Medication Reconcilliation Current Medication List: was personally reviewed by me Blood Pressure Screening Patient's blood pressure: Normal blood pressure Impression Primary Impression: Precordial chest pain Additional Impression: Diarrhea Scribe Attestation The scribe's documentation has been prepared under my direction and personally reviewed by me in its entirety. I confirm that the note above accurately reflects all work, treatment, procedures, and medical decision making performed by me. Departure Information Dispostion Home / Self-Care Referrals Leonardo Jernigan M.D. (MEDICAL) (PCP) Forms HOME CARE DOCUMENTATION FORM, IMPORTANT VISIT INFORMATION, WORK / SCHOOL INSTRUCTIONS Patient Instructions Chest Pain - [facility], ED Diarhhea Viral Ch, My [facility] Additional Instructions Please follow up with your primary care doctor with in the next 24 hours. Any worsening of your symptoms, please return to the ED immediately. This includes any fevers greater than 100.4, worsening pain, chest pain, shortness breath, persistent nausea, vomiting, unable to eat or drink, or any other concerning signs or symptoms from your standpoint. Problem Qualifiers Additional Impression: Diarrhea Diarrhea type: unspecified type Qualified Codes: R19.7 - Diarrhea, unspecified
--- NOTE | 2017-06-20 17:27 | DIAGNOSTIC IMAGING REPORT ---
CHEST ONE VIEW PORTABLE CLINICAL HISTORY: cp dyspnea COMPARISON STUDY: 02/19/2016 FINDINGS: The bones soft tissues and hemidiaphragms are normal. The cardiomediastinal silhouette is normal. The lungs are clear. The pulmonary vasculature is normal. IMPRESSION: Negative chest. The above report was generated using voice recognition software. It may contain grammatical, syntax or spelling errors. Electronically signed by: Yassine Malagon M.D. 06/20/2017 5:26 PM Dictated Date/Time: 06/20/2017 5:26 PM
[2017-06-20 17:46] LABS: BASO % 0.2 %; BASO ABS # 0.02 K/uL (0-0.2); EOS % 1.5 %; EOS ABS # 0.14 K/uL (0-0.5); HEMATOCRIT 42.8 % (37-47); HEMOGLOBIN 14.7 g/dL (12.0-16.0); IG# 0.01 K/uL (0.00-0.02); LYMPH % 23.8 %; LYMPH ABS # 2.17 K/uL (1.2-3.4); MEAN CELL VOLUME 90.5 fL (80-100); MEAN CORPUSCULAR HEMOGLOBIN 31.1 pg (25-34); MEAN CORPUSCULAR HGB CONC 34.3 g/dl (32-36); MEAN PLATELET VOLUME 10.9 fL (7.4-10.4); MONO % 6.3 %; MONO ABS # 0.57 K/uL (0.11-0.59); NEUT % 68.1 %; NEUT ABS # 6.21 K/uL (1.4-6.5); PLATELET COUNT 255 K/uL (130-400); RED CELL DISTRIBUTION WIDTH CV 12.9 % (11.5-14.5); RED CELL DISTRIBUTION WIDTH SD 42.5 fL (36.4-46.3); WHITE BLOOD COUNT 9.12 K/uL (4.8-10.8)
[2017-06-20 18:05] LABS: ALBUMIN 4.2 gm/dl (3.4-5.0); ALT/SGPT 38 U/L (12-78); AST/SGOT 21 U/L (15-37); BLOOD UREA NITROGEN 14 mg/dl (7-18); CALCIUM 9.4 mg/dl (8.5-10.1); CARBON DIOXIDE 30 mmol/L (21-32); CREATININE 0.91 mg/dl (0.60-1.20); GLUCOSE 86 mg/dl (70-99); LIPASE 158 U/L (73-393); POTASSIUM 3.8 mmol/L (3.5-5.1); SODIUM 137 mmol/L (136-145)
[2017-06-20 18:10] LABS: ALKALINE PHOSPHATASE 60 U/L (45-117); TOTAL PROTEIN 8.5 gm/dl (6.4-8.2)
[2017-06-20] MEDS ORDERED: ONDANSETRON INJ 2 MG/ML 2 ML VIAL IV STA (18:28)
[2017-06-20] MEDS ORDERED: KETOROLAC TROMETHAMINE 30 MG/ML VIAL IV STA (18:28)
[2017-06-20] MEDS ORDERED: SODIUM CHLORIDE 0.9% 1000ML 2,000 ML IV STA (18:28)
[2017-06-20] MEDS ORDERED: OPTIRAY 320 IV PRN (19:00)
--- NOTE | 2017-06-20 19:04 | DIAGNOSTIC IMAGING REPORT ---
(CHEST FOR PE) ANGIO WITH CT DOSE: 1835.94 mGy.cm HISTORY: Chest pain dyspnea TECHNIQUE: Multiaxial CT images of the chest were performed following the intravenous administration of contrast to evaluate the pulmonary arteries. Maximal intensity projection images were also obtained. A dose lowering technique was utilized adhering to the principles of ALARA. COMPARISON STUDY: None. FINDINGS: There is a normal caliber thoracic aorta with no evidence for dissection. There is no evidence for pulmonary embolus. No pleural effusions. No pneumothorax. The liver and spleen are unremarkable. No mediastinal or hilar lymphadenopathy. The central airways are patent. The lungs are clear. IMPRESSION: No evidence for pulmonary embolus. The lungs are clear The above report was generated using voice recognition software. It may contain grammatical, syntax or spelling errors. Electronically signed by: Yassine Malagon M.D. 06/20/2017 7:02 PM Dictated Date/Time: 06/20/2017 7:00 PM
--- NOTE | 2017-06-20 19:06 | DIAGNOSTIC IMAGING REPORT ---
ABD/PELVIS IV CONTRAST ONLY CT DOSE: HISTORY: Pain. Nausea. abd pain TECHNIQUE: Multiaxial CT images of the abdomen and pelvis were performed following the use of intravenous contrast. A dose lowering technique was utilized adhering to the principles of ALARA. COMPARISON STUDY: None. FINDINGS: Lung bases are clear. The liver spleen pancreas are unremarkable. The kidneys enhance uniformly. Bowel pattern suggests several loops of bowel showing a slight degree of hyperemia. There are several reactive mesenteric nodes. There are no obstructive characteristics. There is a 2.5 cm right ovarian cyst. There is a 1.5 cm left ovarian cyst. Uterus is anteflexed. There is no free fluid within the pelvic cul-de-sac. IMPRESSION: 1. Mild enteritis. 2. Small bilateral ovarian cysts. The above report was generated using voice recognition software. It may contain grammatical, syntax or spelling errors. Electronically signed by: Yassine Malagon M.D. 06/20/2017 7:05 PM Dictated Date/Time: 06/20/2017 7:02 PM
[2017-06-20 20:42] VITALS: BP 113/72; PULSE 72; O2SAT 98
== END 2017-06-20 20:42 | disposition home or self-care (01) ==
LOC: C.EDB 16:31 → C.EDA 20:42
DX: R07.2 Precordial pain (principal); R19.7 Diarrhea, unspecified; Z87.891 Personal history of nicotine dependence; Z83.3 Family history of diabetes mellitus; Z82.49 Family history of ischemic heart disease and other diseases of the circulatory system; Z81.1 Family history of alcohol abuse and dependence; Z98.891 History of uterine scar from previous surgery